=== PATIENT | female | born 1985 | race Caucasian/White ===

== ENCOUNTER 2019-12-27 05:59 | Day surgery (SDC) | payer OTHER, SELFPAY ==
[~2019-12-27] VITALS: Ht 160 cm; Wt 74.8 kg
[2019-12-27 06:09] VITALS: BP 135/75
[2019-12-27 11:02] VITALS: BP 121/80
== END 2019-12-27 10:50 | disposition home or self-care (01) ==
LOC: DS 05:59 → OR 07:30 → DS 07:30
DX: D06.0 Carcinoma in situ of endocervix (principal)
CPT/HCPCS: J0690; J2250; J3010

== ENCOUNTER 2020-02-09 05:55 | Inpatient (IN) | payer OTHER, SELFPAY ==
[~2020-02-09] VITALS: Ht 160 cm; Wt 77.7 kg
[2020-02-09 06:47] VITALS: BP 128/86
--- NOTE | 2020-02-09 09:57 | NUR ---
RECEIVED REPORT FROM JAMES ARREOLA IN [facility].
[2020-02-09 11:01] VITALS: BP 128/47
[2020-02-09 12:58] VITALS: BP 125/48
--- NOTE | 2020-02-09 13:36 | NUR ---
RECEIVED PATIENT FROM MAXWELL SMITH. PATIENT IN BED AT THIS TIME. DENIES NAUSEA, VOMITTING. INFORMED PATIENT TO TELL STAFF IF BLEEDING AT SURGICAL SITE WELL VAGINAL BLEEDING. SPOKE WITH PATIENT ALSO ABOUT PAIN CONTROL, AND ABOUT URINARY RETENTION. PATIENT STATES SHE FEELS SHE NEED TO URINATE BUT ""NOTHING COMES OUT", BLADDER SCANNER AT BEDSIDE AND INFORMED THAT WE WILL CHECK FOR RETENTION AFTER SHE VOIDS. PATIENT VERBALIZES UNDERSTANDING. CALL LIGHT IN REACH.
[2020-02-09 17:08] VITALS: BP 118/72
--- NOTE | 2020-02-09 18:14 | NUR ---
PATIENT COMPLAINING ABOUT BACK PAIN AND SURGICAL SITE PAIN. PRN MORPHINE 4MG ADMINISTERED. INFORMED PATIENT IF SHE NEEDED SOMETHING ELSE STRONGER, WE WILL HAVE TO PAGED DR KUMAR. PATIENT STATES THE MORPHINE WILL DO FOR NOW AND INFORMED HER OF Q4H SCHEDULE. FAMILY MEMBER CALLED AND ASKED FOR PAIN CONTROL FOR PATIENT AND EXPLAINED SITUATION TO HER WELL. PATIENT ALSO COMPLAINS OF URINARY RETENTION, STATES "SHE FEELS LIKE GOING BUT NOT MUCH COMES OUT". BLADDER SCAN PERFORMED AND ONLY ABOUT 150 ML SEEN. PATIENT VITALS STABLE, NO FEVER, NON DIAPHORETIC, SS PINK, WARM, DRY. TENDERNESS TO LLQ AND TO PELVIC DRESSINGS. WILL ENDORSE TO ONCOMING NURSE. CALL LIGHT IN REACH.
--- NOTE | 2020-02-09 19:57 | NUR ---
PT SEEN, RESTING IN BED, ALERT AND ORIENTED, DENIES HEADACHE OR DIZZINESS, BREATHING EVEN AND UNLABORED, LUNG SOUNDS CLEAR, ON ROOM AIR WITH NO RESP DISTRESS NOTED, DENIES CHEST PAIN, PULSES PALPABLE, NO EDEMA NOTED, GENERALIZED WEAKNESS, ABD SOFT WITH HYPOACTIVE BS, NO BM AT THIS TIME, VOIDED POST-OP, DRESSING TO ABD, C/D/I, NO DISTRESS NOTED, WILL KEEP TO MONITOR.
[2020-02-09 21:00] VITALS: BP 113/63
[2020-02-10 05:03] VITALS: BP 103/48
--- NOTE | 2020-02-10 05:04 | NUR ---
PT AWAKE AND RESTING IN BED, SLEPT ON AND OFF DUE TO NEED TO USE RESTROOM, MEDICATED ONE TIME MORPHINE VIA IVP WITH GOOD RELIEF, IVF INFUSING WELL, DRESSING TO INCISION SITE IS SATURATED AND FALLING OFF, NEW DRESSING APPLIED, NO ACTIVE BLEEDING NOTED AT THIS TIME, WILL KEEP TO MONITOR.
--- NOTE | 2020-02-10 07:18 | NUR ---
REPORT GIVEN TO SADA, ALL QUESTIONS ANSWERED AND CONCERNS ADDRESSED.
--- NOTE | 2020-02-10 07:30 | NUR ---
PT IS AAOX4. MED SURG PT. S/P TOTAL ABD HYSTERECTOMY AND BILATERAL SALPINGECTOMY. PT HAS LOWER ABDOMINAL SURGICAL INCISION CLOSED WITH SUTURES AND COVERED WITH CDI ISLAND DRESSING. RFA IV CATH S/L, FLUSHED, PATENT, SITE WNL. LUNG SOUNDS CTA. NO SOB OR COUGH NOTED. DENIES PAIN. CALL LIGHT WITHIN REACH. WILL CONTINUE TO MONITOR.
[2020-02-10 09:01] VITALS: BP 104/70
--- NOTE | 2020-02-10 10:15 | NUR ---
PT AMBULATED TO BATHROOM AND BACK. PT TOLERATED ACTIVITY WELL. PT HAS PAIN BUT STATES WILL WAIT FOR IV PAIN MEDICATION. WILL CONTINUE TO MONITOR. CALL LIGHT WITHIN REACH.
--- NOTE | 2020-02-10 10:58 | NUR ---
NORCO PO PRN FOR SHARP, BACK PAIN 02/17. EXTRA FLUIDS GIVEN AND ENCOURAGED. PT REPOSITIONED FOR COMFORT. RESP EVEN AND UNLABORED. CALL LIGHT WITHIN REACH. WILL CONTINUE TO MONITOR.
--- NOTE | 2020-02-10 15:25 | NUR ---
PT IS RESTING, RESP EVEN AND UNLABORED. NO DISTRESS NOTED. WILL CONTINUE TO MONITOR.
[2020-02-10 16:13] VITALS: BP 111/68
--- NOTE | 2020-02-10 17:33 | NUR ---
NORCO PO PRN FOR SHOULDER PAIN 02/17. PT REPOSITIONED FOR COMFORT. CALL LIGHT WITHIN REACH.
--- NOTE | 2020-02-10 18:25 | NUR ---
PT IS RESTING IN BED. DENIES PAIN. ABDOMINAL INCISION COVERED WITH CDI DRESSING. PT HAD NO BM AND DID NOT PASS GAS TODAY. PT EDUCATED TO GET UP OUT OF BED AND AMBULATE IN ROOM AND SIT IN BED SIDE CHAIR. PT VERBALIZED UNDERSTANDING. LFA PATENT, SITE WNL. WILL ENDORSE ALL CARE TO NOC RN.
[2020-02-10 20:00] VITALS: BP 97/63
--- NOTE | 2020-02-10 20:00 | NUR ---
RECEIVED PT AWAKE ALERT AND VERBALLY RESPONSIVE.S/P TAHBSO.ABDOMINAL INCISION WITH DRESSING CDI.HYPOACTIVE BOWELSOUNDS.+BM TODAY TO FORMED STOOL.HYPOACTIVE BOWELSOUNDS.DEMONSTRATED AND ENCOURAGED USE OF INCENTIVE SPIROMETER.ENCOURAGED AMBULATION WELL.NC 4/10 TO R SHOUDER PAIN.WILL MONITOR.DENIES CHESTPAIN.BP 97/63 MMHG,HR 80.
--- NOTE | 2020-02-11 04:38 | NUR ---
PT SLEPT WELL ALL NIGHT.MEDICATED WITH NORCO 1 ATB PO X1 WITH GOOD RELIEF.CONTINUE TO ENCOURAGED AMBULATION AND USE OF INCENTIVE SPIROMETER.ALL NEEDS MET.WILL CONTINUE TO MONITOR.
[2020-02-11 05:58] VITALS: BP 103/54
--- NOTE | 2020-02-11 07:33 | NUR ---
RECEIVED PATIENT. IN BED, AWAKE, ALERT, AND ORIENTED X4. NO ACUTE RESP DISTRESS NOTED. NO C/O PAIN AT THIS TIME. EDUCATED REGARDING GOALS FOR TODAY. PATIENT VERBALIZED UNDERSTANDING. INCISIONS CLEAN, DRY AND INTACT. IV INTACT AND PATENT. SAFETY PREC IN PLACE. CALL LIGHT WITHIN REACH. WILL CONTINUE TO MONITOR.
[2020-02-11 08:08] LABS: BASOPHIL % 0.6 % (0-2); PLATELET COUNT 244 x10^3mcL (130-400); RED CELL DISTRIBUTION WIDTH 18.4 % (11.5-14.5)
[2020-02-11 09:18] VITALS: BP 98/53
--- NOTE | 2020-02-11 09:22 | NUR ---
SPOKE WITH DR. KUMAR REGARDING PATIENT CURRENT STATUS. PATIENT DENIES PAIN AT THIS TIME AT ANY LOCATION. HOWEVER, LAST NIGHT, SHE WAS COMPLAINING OF SUSHIL PAIN. DR. KUMAR REQUESTED TO BE TRANSFERRED TO PATIENT TO SPEAK WITH HER. TRANSFER COMPLETED. NO ORDER FOR DISCHARGE AT THIS TIME. WILL CONTINUE TO MONITOR.
--- NOTE | 2020-02-11 10:16 | NUR ---
PATIENT COMPLAINING OF 9/10 BACK PAIN AND 7/10 RIGHT SHOULDER PAIN. NORCO 5MG PO GIVEN. MD AWARE. WILL CONTINUE TO MONITOR.
--- NOTE | 2020-02-11 14:12 | NUR ---
PATIENT COMPLAINING OF RIGHT SHOULDER 9/10 PAIN. NORCO 5 MG/325 MG PO GIVEN. WILL CONTINUE TO MONITOR.
--- NOTE | 2020-02-11 16:00 | NUR ---
DR. KUMAR SEEN SPEAKING WITH PATIENT REGARDING PLAN FOR DISCHARGE. ALL QUESTIONS AND CONCERNS ADDRESSED. WILL START WORKING ON DISCHARGE PAPER WORKS.
[2020-02-11 16:55] VITALS: BP 98/53
--- NOTE | 2020-02-11 17:45 | NUR ---
DISCHARGE INSTRUCTIONS GIVEN TO PATIENT. ALL QUESTIONS AND CONCERNS ADDRESSED. D/V IV TO RIGHT FOREARM, TOLERATED WELL. CATHETER INTACT. APPLIED PRESSURE. GAUZE AND TAPE IN PLACE. ID BANDS REMOVED. WOUND PHOTO TAKEN, NO S/S OF INFECTION NOTED. NEW DRESSING IN PLACE. EDUCATION ABOUT CARING FOR INCISION PROVIDED. ALL NEEDS ATTENDED TO. INSTRUCTED TO USE CALL LIGHT WHEN READY TO LEAVE THE UNIT.
--- NOTE | 2020-02-11 18:00 | NUR ---
PATIENT IS BEING DISCHARGED IN STABLE CONDITION. NO ACUTE DISTRESS NOTED. ALL NEEDS MET. ALL BELONGINGS SENT HOME WITH PATIENT. ACCOMPANIED TO LOBBY BY [employer]IVERS[employer] CASH CLERK.
== END 2020-02-11 18:05 | disposition home or self-care (01) | DRG 513 ==
LOC: MU 05:55
PROVIDERS: ADMIT Obstetrics & Gynecology; ATTEND Obstetrics & Gynecology
PROC: 0UT70ZZ Resection of Bilateral Fallopian Tubes, Open Approach (ICD-10-PCS; 2020-02-09)
PROC: 0UT90ZZ Resection of Uterus, Open Approach (ICD-10-PCS; principal; 2020-02-09 07:30)
DX: D06.9 Carcinoma in situ of cervix, unspecified (principal); Z20.828 Contact with and (suspected) exposure to other viral communicable diseases
CPT/HCPCS: 82962; G0378; J0690; J2175; J2250; J2270; J3010; J3490; J7120; U0003-CS